=== PATIENT | male | born 1955 | race Caucasian/White ===

== ENCOUNTER 2017-09-04 12:01 | Emergency (ER) | payer OTHER ==
[2017-09-04 12:03] VITALS: BP 152/84; PULSE 59; RESP 16; TEMP 98; O2SAT 99
[2017-09-04] MEDS ORDERED: CITA10TA4 PO (12:14)
[2017-09-04] MEDS ORDERED: AMLO10TA2 PO (12:14)
[2017-09-04] MEDS ORDERED: ASPI-516 CHEW (12:14)
--- NOTE | 2017-09-04 12:41 | PD ---
HPI Chief Complaint: Injury Time Seen by Provider: 12:14 Travel History International Travel<30 days: No Contact w/Intl Traveler<30days: No Traveled to known affect area: No History of Present Illness HPI 62-year-old male presents emergency department for evaluation of head pain and left wrist pain after being hit by a pool filter that occurred about an hour ago. Patient states that he was replacing the filter and the filter flew off hitting him in the right frontal forehead region. Patient denies any subsequent falls, blurred vision, visual changes. Says that he had a 20 minute period of nausea and states he had some mixup of his words, however, this resolved spontaneously. Currently, patient denies any confusion, nausea, vomiting. Denies personality changes. He complains of left wrist pain located on the radial aspect. Pain increases with movement, decreases with rest. Aching and constant, without radiation of pain. Denies numbness or tingling. He has no other complaints other than a headache where he was hit and left wrist pain. Says he takes aspirin 81 mg daily but denies any other blood thinner. PFSH Past Medical History Hx Anticoagulant Therapy: Yes (asa 81mg) Cardiovascular Problems: Yes (htn on meds) Hypertension: Yes Past Surgical History Appendectomy: Yes Other Surgery: Yes (BULLET REMOVED, DEVIATED SEPTUM) Social History Alcohol Use: No (FORMER) Tobacco Use: No Substance Use: No Allergies-Medications (Allergen,Severity, Reaction): Coded Allergies: Penicillins (Verified Allergy, Unknown, 09/04/17) Uncoded Allergies: no narcotics (Adverse Reaction, Unknown, 09/04/17) recovery Reported Meds & Prescriptions Reported Meds & Active Scripts Active Reported Aspirin 81 Mg Chew 81 Mg CHEW DAILY Citalopram (Citalopram Hydrobromide) 10 Mg Tab 10 Mg PO DAILY Amlodipine (Amlodipine Besylate) 10 Mg Tab 10 Mg PO DAILY Review of Systems Except as stated in HPI: all other systems reviewed are Neg Physical Exam Narrative GENERAL: Well-nourished, well-developed patient. SKIN: Focused skin assessment warm/dry. HEAD: Normocephalic. Small contusion to the right frontal forehead without crepitus or deformities EYES: No scleral icterus. No injection or drainage. EOMI, PERRLA NECK: Supple, trachea midline. No JVD or lymphadenopathy. No midline tenderness CARDIOVASCULAR: Regular rate and rhythm without murmurs, gallops, or rubs. RESPIRATORY: Breath sounds equal bilaterally. No accessory muscle use. GASTROINTESTINAL: Abdomen soft, non-tender, nondistended. MUSCULOSKELETAL: No cyanosis, or edema. left wrist-tender to palpation radial aspect, decreased range of motion secondary to pain, neurovascularly intact. 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 BACK: Nontender without obvious deformity. No CVA tenderness. Data Data Last Documented VS Vital Signs Date Time Temp Pulse Resp B/P (MAP) Pulse Ox O2 Delivery O2 Flow Rate FiO2 09/04/17 12:03 98.0 59 16 152/84 (106) 99 Orders Orders Wrist, Complete (Buf7utr) (09/04/17 ) Support Splint (09/04/17 13:51) Ed Discharge Order (09/04/17 13:55) Fiberglass Sugartong Sp Ad Arm (09/04/17 ) Sling Cradle Arm (09/04/17 ) MDM Medical Decision Making Medical Screen Exam Complete: Yes Emergency Medical Condition: Yes Differential Diagnosis Left wrist fracture, sprain, strain Narrative Course 62-year-old male presents emergency department evaluation of headache and left wrist pain that started just prior to arrival after being hit with a pool filter. Vital signs are stable. His exam findings demonstrate a contusion to the right forehead without crepitus or deformities. There is a small abrasion to the forehead without significant bleeding. He has tenderness palpation of the distal wrist, radial aspect. No that he says he has a history of a wrist fracture but this was years ago he has had no issues since then. We discussed the risks versus benefits of ordering a CT head. I did offer imaging however, pt preferred to defer based off of symptoms and mechanism. I explained that he may have a concussion based off of his symptoms. He did however would like an x-ray of the wrist. Last Impressions Wrist X-Ray 09/04/17 0000 Signed Impressions: Service Date/Time: Monday, September 04, 2017 13:15 - CONCLUSION: 1. Minimal lucency distal radius could be nondisplaced fracture. No displaced fracture identified. 2. Soft tissue swelling. Jules Mixon MD The sugar tong splint was placed on the wrist as patient did have tenderness over the questionable fracture. Advised that he should follow-up with his primary care physician and orthopedist for further evaluation. Advised to avoid removing the splint. Says that he would return to work immediately and I insisted he leave the splint on to avoid complications of this possible fracture. Advised that he should return to the emergency department for worsening or persistent symptoms. Advised that he should return also if he develop personality changes, nausea, vomiting or worsening headache. Diagnosis Primary Impression: Radius distal fracture Qualified Codes: S52.592A - Other fractures of lower end of left radius, initial encounter for closed fracture Additional Impression: Head contusion Qualified Codes: S00.83XA - Contusion of other part of head, initial encounter Referrals: Orthopedist Primary Care Physician Additional Instructions: Use ice or heat for symptom relief. Elevate the joint above the heart to reduce swelling. You may use compression with Ezequiel wrap or similar to reduce swelling. If symptoms persist or worsen, return to the emergency department. Follow up with your primary care physician within 2 days. Leave splint in place until you follow-up with your primary care physician or learning solutions specialist. Recommend he follow-up within 1-2 weeks. If you develop nausea, personality changes, or increased headache, return to the ED. You may use Tylenol or Motrin per package instructions for your pain. Disposition: 01 DISCHARGE HOME Condition: Stable Loni Sotomayor Sep 04, 2017 12:41
--- NOTE | 2017-09-04 13:43 | RADRPT ---
EXAM DATE/TIME: 09/04/2017 13:15 [facility] COMPARISON: No previous studies available for comparison. INDICATIONS : Pool filter popped off and hit patient in wrist. MEDICAL HISTORY : Hypertension. SURGICAL HISTORY : Appendectomy. ENCOUNTER: Initial ACUITY: 1 day PAIN SCORE: 7/10 LOCATION: Left Wrist FINDINGS: Three view examination of the left wrist demonstrates soft tissue swelling with minimal lucency in th e distal radius. Ulna is intact. The carpal bones are in normal alignment. The joint spaces are main tained. Bony mineralization is normal. CONCLUSION: 1. Minimal lucency distal radius could be nondisplaced fracture. No displaced fracture identified. 2. Soft tissue swelling. Jules Mixon MD on September 04, 2017 at 13:39 Board Certified Radiologist. This report was verified electronically.
== END 2017-09-04 14:18 | disposition home or self-care (01) ==
LOC: PHEFT 12:01
DX: S52.592A Other fractures of lower end of left radius, initial encounter for closed fracture (principal); S00.83XA Contusion of other part of head, initial encounter; I10 Essential (primary) hypertension; W22.8XXA Striking against or struck by other objects, initial encounter; Y93.89 Activity, other specified; Z79.82 Long term (current) use of aspirin
CPT/HCPCS: 29125; 73110